=== PATIENT | male | born 1980 | race Caucasian/White ===

== ENCOUNTER → 2017-05-31 | Outpatient (CLI) | payer BC | LOC: RAD 08:27 | DX: R59.0 Localized enlarged lymph nodes (principal) ==

== ENCOUNTER 2021-12-23 22:13 | Emergency (ER) | payer BC ==
[~2021-12-23] VITALS: Ht 188 cm; Wt 102.3 kg
[2021-12-23] MEDS ORDERED: PRAVASTATIN SOD40 MG PO (22:47)
[2021-12-23 22:49] LABS: BASO # 0.03 K/mm3 (0.02-0.10); EOS # 0.03 K/mm3 (0.04-0.40); EOS % 0.4 % (0.0-4.0); HEMATOCRIT 44.4 % (42.0-52.0); HEMOGLOBIN 15.4 g/dL (13.5-18.0); LYMPH# 1.69 K/mm3 (1.50-4.00); MEAN CELL VOLUME 84 fl (78-100); MEAN CORPUSCULAR HEMOGLOBIN 29 pg (27-31); MEAN CORPUSCULAR HGB CONC 35 g/dL (33-37); MEAN PLATELET VOLUME 10.3 fl (7.4-10.4); NEU # 5.75 K/mm3 (1.40-6.50); PLATELET COUNT 275 K/mm3 (130-400); RED BLOOD COUNT 5.31 M/mm3 (4.20-5.60); RED CELL DISTRIBUTION WIDTH 12.5 % (11.5-14.5); WHITE BLOOD COUNT 7.9 K/mm3 (4.8-10.8)
[2021-12-23 22:55] LABS: ALBUMIN 4.8 g/dL (3.5-5.0); POTASSIUM 3.8 mmol/L (3.5-5.1)
[2021-12-23 22:58] LABS: TOTAL PROTEIN 7.8 g/dL (6.4-8.3)
[2021-12-23 23:00] LABS: TOTAL BILIRUBIN 0.9 mg/dL (0.2-1.2)
[2021-12-24] MEDS ORDERED: NORCO 325 MG-51 TA1 PO (00:17)
[2021-12-24] MEDS ORDERED: ZOFRAN ODT4 MG PO (00:17)
[2021-12-24 00:20] LABS: URINE APPEARANCE HAZY; URINE COLOR YELLOW
[2021-12-24 00:21] LABS: PH-URINE 7.5 (5.0 - 8.0); URINE BILIRUBIN NEGATIVE (NEGATIVE); URINE BLOOD 50 ery/uL (NEGATIVE); URINE GLUCOSE NEGATIVE (NEGATIVE); URINE KETONE NEGATIVE (NEGATIVE); URINE LEUKOCYTE ESTERASE NEGATIVE (NEGATIVE); URINE NITRATE NEGATIVE (NEGATIVE); URINE PROTEIN(semi-quant) TRACE (NEGATIVE); URINE UROBILINOGEN NORMAL (NORMAL); URINE WBC 0-1 /hpf (0-3)
[2021-12-24 00:40] VITALS: BP 116/75
== END 2021-12-24 00:40 | disposition home or self-care (01) ==
LOC: ED 22:13
PROVIDERS: Physician Assistant
DX: N13.2 Hydronephrosis with renal and ureteral calculous obstruction (principal)
CPT/HCPCS: J1885; J2405; J3010; J7030

== ENCOUNTER → 2023-04-14 | Outpatient (CLI) | payer BC ==
[~2023-04-14] MED LIST: NORCO 325 MG-51 TA1 PO; PRAVASTATIN SOD40 MG PO; ZOFRAN ODT4 MG PO
== END ==
LOC: RAD 09:51
DX: N43.40 Spermatocele of epididymis, unspecified (principal); N43.3 Hydrocele, unspecified

== ENCOUNTER → 2023-08-10 | Outpatient (CLI) | payer BC | LOC: RAD 08:37 | DX: M79.671 Pain in right foot (principal) ==